=== PATIENT | male | born 1975 ===

== ENCOUNTER 2019-01-04 12:27 | Emergency (ER) | payer OTHER ==
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
[2019-01-04 12:56] VITALS: BP 124/82; PULSE 70; RESP 20; TEMP 98.3; O2SAT 100
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
[2019-01-04] MEDS ORDERED: Lidocaine 1% Inj (20ml) INFIL ONE (14:27)
[2019-01-04] MEDS ORDERED: Lidocaine Hydrochloride 5 ML INJ ONE (14:37)
[2019-01-04] MEDS ORDERED: Tdap Vaccine 0.5 ml Vial (10-64 yrs) IM ONE ×2 (14:57→15:15)
[2019-01-04] MEDS ORDERED: Bacitracin 500 Units/gm Oint Foilpak UD TOP ONE (15:09)
== END 2019-01-04 15:26 | disposition home or self-care (01) ==
LOC: C.ER 12:27
DX: S01.01XA Laceration without foreign body of scalp, initial encounter (principal); Y93.01 Activity, walking, marching and hiking; Y00.XXXA Assault by blunt object, initial encounter; Z23 Encounter for immunization

== ENCOUNTER 2019-01-16 11:18 | Emergency (ER) | payer OTHER ==
[2019-01-16 11:22] VITALS: BP 117/68; PULSE 63; RESP 18; TEMP 98; O2SAT 100
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
== END 2019-01-16 12:05 | disposition home or self-care (01) ==
LOC: C.ER 11:18
DX: Z48.02 Encounter for removal of sutures (principal)